=== PATIENT | male | born 1960 | race Caucasian/White ===

== ENCOUNTER 2018-03-27 10:15 | Day surgery (SDC) | payer BC ==
[~2018-03-27 10:15] MED LIST: PHENYLEPHRINE HCL 10 % OPHTH. SOL 5ML OD
[2018-03-27] MEDS: LIDOCAINE 3.5 % 1ML OPHTH TOPICAL GEL OU (11:18)
[2018-03-27] MEDS: PHENYLEPHRINE 2.5% OPHTH SOL 2ML OD (11:18)
[2018-03-27] MEDS: CYCLOPENTOLATE 2% OPHTH SOLN 2ML BTL OD (11:18)
[2018-03-27] MEDS: TROPICAMIDE 1% OPHTH SOLN 2ML OD (11:18)
[2018-03-27] MEDS: OFLOXACIN 0.3 % (OCUFLOX) OPTH SOL 5ML OD (11:18)
[2018-03-27] MEDS: CEFUROXIME 1MG/0.1ML INTRACAMERAL INJ As Ordered (12:49)
[2018-03-27] MEDS: POVIDONE-IODINE 5% OPHTH PREP SOL 30ML As Ordered (12:49)
[2018-03-27] MEDS: LIDOCAINE 1% SDV 5 ML VIAL As Ordered (12:49)
[2018-03-27] MEDS: BALANCED SALT IRRIGATION SOLUTION 500ML BAG (FOR OR EYE MACHINE) As Ordered (12:49)
[2018-03-27] MEDS: HEALON DUET PRO(HEALON 10MG/ML 0.55ML & HEALON ENDOCOAT 30MG/ML 0.85ML) As Ordered (12:49)
[2018-03-27] MEDS ORDERED: MIDAZOLAM INJ 2 MG/2 ML VIAL (J2250) As Ordered (13:27)
[2018-03-27] MEDS ORDERED: fentaNYL 100 MCG/2 ML INJECTION (J3010) As Ordered (13:27)
[2018-03-27] MEDS ORDERED: AcetaZOLAMIDE 500 MG ER CAP As Ordered (13:34)
[2018-03-27] MEDS: AcetaZOLAMIDE 500 MG ER CAP PO (13:35)
== END 2018-03-27 13:50 | disposition home or self-care (01) ==
LOC: M SDC 10:15
DX: H25.11 Age-related nuclear cataract, right eye (principal); I10 Essential (primary) hypertension; G47.30 Sleep apnea, unspecified; Z79.899 Other long term (current) drug therapy; E66.9 Obesity, unspecified; Z85.46 Personal history of malignant neoplasm of prostate
CPT/HCPCS: 66984

== ENCOUNTER 2018-04-17 07:32 | Day surgery (SDC) | payer BC ==
[~2018-04-17 07:32] MED LIST changes: +ACETAMINOPHEN 325 MG TAB PO; +MIDAZOLAM INJ 2 MG/2 ML VIAL (J2250) As Ordered; -PHENYLEPHRINE HCL 10 % OPHTH. SOL 5ML OD; +PHENYLEPHRINE HCL 10 % OPHTH. SOL 5ML OS; +PROPARACAINE 0.5% OPHTH SOL 15ML OS; +fentaNYL 100 MCG/2 ML INJECTION (J3010) As Ordered
[2018-04-17] MEDS: LIDOCAINE 3.5 % 1ML OPHTH TOPICAL GEL OU (08:35)
[2018-04-17] MEDS: PHENYLEPHRINE 2.5% OPHTH SOL 2ML OS (08:40)
[2018-04-17] MEDS: OFLOXACIN 0.3 % (OCUFLOX) OPTH SOL 5ML OS (08:40)
[2018-04-17] MEDS: CYCLOPENTOLATE 2% OPHTH SOLN 2ML BTL OS (08:40)
[2018-04-17] MEDS: TROPICAMIDE 1% OPHTH SOLN 2ML OS (08:40)
[2018-04-17] MEDS: POVIDONE-IODINE 5% OPHTH PREP SOL 30ML As Ordered (10:06)
[2018-04-17] MEDS: BALANCED SALT IRRIGATION SOLUTION 500ML BAG (FOR OR EYE MACHINE) As Ordered (10:07)
[2018-04-17] MEDS: CEFUROXIME 1MG/0.1ML INTRACAMERAL INJ As Ordered (10:07)
[2018-04-17] MEDS: LIDOCAINE 1% SDV 5 ML VIAL As Ordered (10:07)
[2018-04-17] MEDS: HEALON DUET PRO(HEALON 10MG/ML 0.55ML & HEALON ENDOCOAT 30MG/ML 0.85ML) As Ordered (10:07)
[2018-04-17] MEDS ORDERED: KETOROLAC 0.5% OPHTH SOLN OS (10:45)
[2018-04-17] MEDS: AcetaZOLAMIDE 500 MG ER CAP PO (10:45)
[2018-04-17] MEDS ORDERED: TRIMETHOBENZAMIDE 300 MG CAP PO (10:45)
== END 2018-04-17 10:54 | disposition home or self-care (01) ==
LOC: M SDC 07:32
DX: H25.12 Age-related nuclear cataract, left eye (principal); I10 Essential (primary) hypertension; E11.65 Type 2 diabetes mellitus with hyperglycemia; E78.1 Pure hyperglyceridemia; M54.9 Dorsalgia, unspecified; E78.5 Hyperlipidemia, unspecified; C61 Malignant neoplasm of prostate; G47.33 Obstructive sleep apnea (adult) (pediatric); R06.02 Shortness of breath; R60.9 Edema, unspecified; E66.01 Morbid (severe) obesity due to excess calories; Z68.41 Body mass index [BMI] 40.0-44.9, adult; Z79.899 Other long term (current) drug therapy
CPT/HCPCS: 66984